=== PATIENT | male | born 1970 | race Caucasian/White ===

== ENCOUNTER → 2024-10-07 11:04 | Outpatient (CLI) | payer OTHER, SELFPAY ==
--- NOTE | 2024-10-07 11:24 | EKG_ITS ---
[place] [id number] [place] [id number] Test Date: 2024-10-07 Pat Name: Ignacio Abraham Department: 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
== END ==
LOC: RAD 11:35 → RESP 11:35
PROVIDERS: Referring Provider Orthopaedic Surgery Adult Reconstructive Orthopaedic Surgery; Visit Provider Orthopaedic Surgery Adult Reconstructive Orthopaedic Surgery
DX: Z01.818 Encounter for other preprocedural examination (principal); Z01.812 Encounter for preprocedural laboratory examination; R73.9 Hyperglycemia, unspecified
CPT/HCPCS: 93005; 93010